=== PATIENT | female | born 1980 | race Caucasian/White ===

== ENCOUNTER 2016-12-03 09:03 | Day surgery (SDC) | payer BC ==
[~2016-12-03 09:03] MED LIST: Lactated Ringers 1,000 ML IV SCH; Lidocaine 1% 4 ML ONE; Lidocaine 1%/Sod Bicarbonate in NS 8.4% 1 ML Syringe IV PRN; Midazolam 1 MG/ML 2 ML SDV ONE; Propofol 200 MG/20 ML SDV ONE; Sodium Chloride 0.9% 10 ML Syringe FLUSH PRN; fentaNYL 250 MCG/5 ML SDV ONE
--- NOTE | 2016-12-03 09:39 | PCM.PREANE ---
Preanesthetic Assessment - Procedure Proposed Procedure: Endometrial Ablation Novasure placement - Anesthesia/Transfusion/Family Hx Anesthesia History: Prior Anesthesia Reaction Type of Anesthesia Reaction: Excessive Nausea/Vomiting Family History of Anesthesia Reaction: No Transfusion History: No Prior Transfusion(s) Intubation History: Unknown - Review of Systems General: Other (nasal congestion ) Pulmonary: No Symptoms Cardiovascular: No Symptoms Gastrointestinal: No symptoms Neurological: No Symptoms Other: Reports: Thyroid Problems (hypothyroidism on medications ) - Physical Assessment NPO Status Date: 12/02/16 NPO Status Time: 23:00 O2 Sat by Pulse Oximetry: 100 Respiratory Rate: 16 Vital Signs: Last Vital Signs Temp 36.4 C 12/03/16 09:10 Pulse 63 12/03/16 09:10 Resp 16 12/03/16 09:10 BP 121/77 12/03/16 09:10 Pulse Ox 100 12/03/16 09:10 Height: 1.73 m Weight: 89.811 kg ASA Class: 2 Mental Status: Alert & Oriented x3 Airway Class: Mallampati = 2 Dentition: Reports: Normal Dentition (retainters upper and lower ) Thyro-Mental Finger Breadths: 3 Mouth Opening Finger Breadths: 5 ROM/Head Extension: Full Lungs: Clear to auscultation, Normal respiratory effort Cardiovascular: Regular Rate, Regular Rhythm - Allergies Allergies/Adverse Reactions: Allergies Allergy/AdvReac Type Severity Reaction Status Date / Time No Known Allergies Allergy Verified 12/02/16 14:45 - Blood Blood Available: Yes Product(s) Available: PRBC - Anesthesia Plan Pre-Op Medication Ordered: None - Acknowledgements Anesthesia Type Planned: General Anesthesia Pt an Appropriate Candidate for the Planned Anesthesia: Yes Alternatives and Risks of Anesthesia Discussed w Pt/Guardian: Yes Pt/Guardian Understands and Agrees with Anesthesia Plan: Yes PreAnesthesia Questionnaire HEENT History: Reports: Allergic Rhinitis Cardiovascular History: Reports: None Respiratory History: Reports: None Gastrointestinal History: Reports: Irritable Bowel Syndrome Genitourinary History: Reports: None RN FLIGHT History: Reports: , Spontaneous Other OB/BYN History: dysmenorrhea, menorrhagia, skin tag of vuvla Musculoskeletal History: Reports: Other (See Below) Other Musculoskeletal History: R foot pain Neurological History: Reports: None Psychiatric History: Reports: None Endocrine/Metabolic History: Reports: Hypothyroidism, Vitamin D Deficiency, Other (See Below) Other Endocrine/Metabolic History: on thyroid supplement Hematologic History: Reports: None Immunologic History: Reports: None Oncologic (Cancer) History: Reports: None Dermatologic History: Reports: Melanoma, Urticaria, Other (See Below) Other Dermatologic History: acne - Past Surgical History Head Surgeries/Procedures: Reports: None HEENT Surgical History: Reports: LASIK, Other (See Below) Other HEENT Surgeries/Procedures: strabismus surgery Female Surgical History: Reports: D&C Endocrine Surgical History: Reports: None - SUBSTANCE USE Smoking Status *Q: Former Smoker Tobacco Use Within Last Twelve Months: No Second Hand Smoke Exposure: No Days Per Week of Alcohol Use: 0 Recreational Drug Use History: No - HOME MEDS Home Medications: Home Meds Cetirizine [ZyrTEC] 10 mg PO DAILY 12/02/16 [History] Cholecalciferol (Vitamin D3) [Vitamin D3] 1,000 unit PO DAILY 12/02/16 [History] Cimetidine [Tagamet Hb] 200 mg PO DAILY 12/02/16 [History] Fluticasone Propionate [Fluticasone Propionate] 2 spray NASBOTH DAILY PRN [History] L.acidoph,Paracasei, B.lactis [Probiotic] 1 cap PO DAILY 12/02/16 [History] Lactase [Lactaid] 1 - 3 tab PO DAILY PRN 12/02/16 [History] Levothyroxine Sodium [Levothyroxine Sodium] 50 mcg PO DAILY 12/02/16 [History] Magnesium Oxide 250 mg PO DAILY 12/02/16 [History] Methylcellulose [Citrucel] 500 mg PO DAILY 12/02/16 [History] Multivitamin [Multivitamins] 1 tab PO DAILY 12/02/16 [History] hydrOXYzine HCl [Hydroxyzine HCl] 50 mg PO BEDTIME 12/02/16 [History] - CURRENT (IN HOUSE) MEDS Current Meds: Current Medications Lactated Ringer's (Ringers, Lactated) 1,000 mls @ 125 mls/hr IV ASDIRECTED ANDRY Last Admin: 12/03/16 09:25 Dose: 125 mls/hr Lidocaine/Sodium Bicarbonate (Buffered Lidocaine 1% In Ns 8.4%) 0.25 ml IV ONETIME PRN PRN Reason: Prior to IV Start Last Admin: 12/03/16 09:25 Dose: 0.25 ml Sodium Chloride (Saline Flush) 10 ml FLUSH ASDIRECTED PRN PRN Reason: Keep Vein Open Discontinued Medications Fentanyl (Sublimaze) Confirm Administered Dose 250 mcg .ROUTE .STK-MED ONE Stop: 12/03/16 07:48 Lidocaine HCl (Xylocaine-Mpf 1%) Confirm Administered Dose 4 mls @ as directed .ROUTE .STK-MED ONE Stop: 12/03/16 07:50 Midazolam HCl (Versed 1 Mg/Ml) Confirm Administered Dose 2 mg .ROUTE .STK-MED ONE Stop: 12/03/16 07:48 Midazolam HCl (Versed 1 Mg/Ml) Confirm Administered Dose 2 mg .ROUTE .STK-MED ONE Stop: 12/03/16 07:49 Propofol (Diprivan 20 Ml) Confirm Administered Dose 400 mg .ROUTE .STK-MED ONE Stop: 12/03/16 07:47
[2016-12-03] MEDS ORDERED: Ondansetron 4 MG/2 ML SDV IVPUSH PRN ×2 (09:43→11:07)
[2016-12-03] MEDS ORDERED: fentaNYL 100 MCG/2 ML SDV IVPUSH PRN (09:43)
[2016-12-03] MEDS ORDERED: diphenhydrAMINE 50 MG/ML SDV IVPUSH PRN (09:43)
[2016-12-03] MEDS ORDERED: ceFAZolin 1 GM Vial ONE (09:56)
[2016-12-03] MEDS ORDERED: HYDROmorphone 0.5 MG/0.5 ML Syringe IVPUSH PRN (10:30)
[2016-12-03] MEDS ORDERED: Lactated Ringers 1,000 ML ONE (10:56)
[2016-12-03] MEDS ORDERED: Ondansetron 4 MG/2 ML SDV ONE (11:03)
[2016-12-03] MEDS ORDERED: Neostigmine Methylsulfate 1 MG/ML 5 ML Syringe ONE (11:03)
[2016-12-03] MEDS ORDERED: Ketorolac 30 MG/ML SDV ONE (11:03)
[2016-12-03] MEDS ORDERED: Dexamethasone 4 MG/ML SDV ONE (11:03)
--- NOTE | 2016-12-03 11:13 | PCM.OPNOTE ---
- General Post-Op/Procedure Note Date of Surgery/Procedure: 12/03/16 Operative Procedure(s): Hysteroscopy, NovaSure endometrial ablation Findings: Normal appearing uterus. Bimanual exam show no adnexal abnormalities or parametrial induration. Uterus sounded to 8.5 cm with cervix approximately 2.5 cm in length. The width of the uterus is 2.5 cm Pre Op Diagnosis: Menorrhagia, dysmenorrhea Post-Op Diagnosis: Same Anesthesia Technique: General ET tube Primary Surgeon: Peng Dyson Complications: None Condition: Good Free Text/Narrative:: Surgery duration: 14 minutes Procedure: After patient was adequately consented she was taken back to the operating room. She had sequential compression stockings placed for DVT prophylaxis and was given 2 g of Ancef preoperatively for infection prophylaxis. She was then given general endotracheal anesthesia. After adequate anesthesia patient was placed in a dorsal lithotomy position and prepped and draped in usual fashion. The weighted speculum was placed cervix grasped with single-tooth tenaculum. The uterine cavity sounded to 8.5 cm with approximately 2.5 cm being cervical length. It was then serially dilated to accommodate a 5 mm rigid 30 scope. This was placed and using normal saline as a distending medium the endometrial cavity was distended and evaluated. No significant pathology was noted. No samples were taken. The NovaSure endometrial ablation was then performed. The NovaSure device packet was opened and the device was inspected. The device was then placed into the endometrial cavity and the array was opened. With the uterus was approximately 2.5 cm. The depths of the uterus itself was 6.0 cm. Cervical Length again 2.5 cm. The settings were placed on the NovaSure generator. The power setting was 83. Uterine cavity integrity check was then performed and was successful. The endometrial ablation was then undertaken. At the end of this the array was collapsed and the device removed. The hysteroscope was then replaced into the endometrial cavity and the endometrial cavity was noted to be adequately cauterized. At this time the procedure was discontinued. The hysteroscope was removed, the cervix which had been grasped with single-tooth tenaculum was released. Sponge stick was placed in the vagina to remove all blood. The patient was returned to supine position and awakened from general endotracheal anesthesia. She tolerated the procedure well left the operating room in satisfactory condition.
--- NOTE | 2016-12-03 11:20 | PCM.POSTAN ---
POST ANESTHESIA ASSESSMENT - MENTAL STATUS Mental Status: alert - RESPIRATORY Respiratory Status: respiratory rate WNL, airway patent, O2 saturation stable - CARDIOVASCULAR CV Status: pulse rate WNL, blood pressure stable - GASTROINTESTINAL GI Status: no symptoms - PAIN Pain Score: 8 (SPIRAL TUBE WINDER has orders for pain medications ) - POST OP HYDRATION Hydration Status: adequate & stable
[2016-12-03 12:09] VITALS: BP 107/70
== END 2016-12-03 13:07 | disposition home or self-care (01) ==
LOC: JD.SDS 09:03
PROVIDERS: ATTEND Obstetrics & Gynecology
DX: N92.0 Excessive and frequent menstruation with regular cycle (principal); N94.6 Dysmenorrhea, unspecified; E03.9 Hypothyroidism, unspecified; K58.9 Irritable bowel syndrome, unspecified; Z88.8 Allergy status to other drugs, medicaments and biological substances; Z79.899 Other long term (current) drug therapy; Z87.59 Personal history of other complications of pregnancy, childbirth and the puerperium; Z98.890 Other specified postprocedural states; Z82.49 Family history of ischemic heart disease and other diseases of the circulatory system; Z87.891 Personal history of nicotine dependence
CPT/HCPCS: 58563; 81025; J0690; J1100; J1885; J2250; J2405; J2710; J3010; J7120; 00952; J2704

== ENCOUNTER 2017-03-18 09:01 | Day surgery (SDC) | payer BC ==
[~2017-03-18 09:01] MED LIST changes: -Lactated Ringers 1,000 ML IV SCH; -Lidocaine 1% 4 ML ONE; -Lidocaine 1%/Sod Bicarbonate in NS 8.4% 1 ML Syringe IV PRN; +Lidocaine 1%/Sod Bicarbonate in NS 8.4% 1 ML Syringe PRN; -Midazolam 1 MG/ML 2 ML SDV ONE; -Propofol 200 MG/20 ML SDV ONE; -fentaNYL 250 MCG/5 ML SDV ONE
[2017-03-18] MEDS ORDERED: Lidocaine 1% with EPINEPHrine 1:100,000 20 ML MDV ONE (09:07)
[2017-03-18] MEDS ORDERED: Sodium Chloride 0.9% 50 ML SDV ONE (09:07)
[2017-03-18] MEDS: Lactated Ringers 1,000 ML IV SCH ×2 (09:15→15:34)
[2017-03-18] MEDS ORDERED: Propofol 200 MG/20 ML SDV ONE (09:19)
[2017-03-18] MEDS ORDERED: Rocuronium 50 MG/5 ML Vial ONE (09:19)
[2017-03-18] MEDS ORDERED: Ondansetron 4 MG/2 ML SDV ONE (09:19)
[2017-03-18] MEDS ORDERED: Midazolam 1 MG/ML 2 ML SDV ONE (09:20)
[2017-03-18] MEDS ORDERED: fentaNYL 250 MCG/5 ML SDV ONE (09:20)
[2017-03-18] MEDS ORDERED: Lidocaine 1% 4 ML ONE (09:20)
[2017-03-18] MEDS ORDERED: ceFAZolin 1 GM Vial ONE (09:23)
[2017-03-18] MEDS ORDERED: Scopolamine 1.5 MG Transdermal Patch TOP ONE (09:24)
--- NOTE | 2017-03-18 09:28 | PCM.PREANE ---
Preanesthetic Assessment - Anesthesia/Transfusion/Family Hx Anesthesia History: Prior Anesthesia Reaction Family History of Anesthesia Reaction: No Transfusion History: No Prior Transfusion(s) Intubation History: Unknown - Review of Systems General: No Symptoms Pulmonary: No Symptoms Cardiovascular: No Symptoms Gastrointestinal: No Symptoms Neurological: No Symptoms Other: Reports: Thyroid Problems (hypothyroid) - Physical Assessment NPO Status Date: 03/17/17 NPO Status Time: 00:00 Pulse: 79 O2 Sat by Pulse Oximetry: 99 Respiratory Rate: 16 Blood Pressure: 115/86 Temperature: 36.8 C Height: 1.73 m Weight: 89.811 kg ASA Class: 2 Mental Status: Alert & Oriented x3 Airway Class: Mallampati = 1 Dentition: Reports: Partial (top and bottom) Thyro-Mental Finger Breadths: 3 Mouth Opening Finger Breadths: 3 ROM/Head Extension: Full Lungs: Clear to Auscultation, Normal Respiratory Effort Cardiovascular: Regular Rate, Regular Rhythm - Lab Values: Laboratory Last Values WBC 7.96 K/mm3 (3.98-10.04) 03/17/17 08:35 RBC 4.90 M/mm3 (3.98-5.22) 03/17/17 08:35 Hgb 14.2 gm/L (11.2-15.7) 03/17/17 08:35 Hct 42.2 % (34.1-44.9) 03/17/17 08:35 MCV 86.1 fl (79.4-94.8) 03/17/17 08:35 MCH 29.0 pg (25.6-32.2) 03/17/17 08:35 MCHC 33.6 g/dl (32.2-35.5) 03/17/17 08:35 RDW Std Deviation 40.5 fL (36.4-46.3) 03/17/17 08:35 Plt Count 281 K/mm3 (182-369) 03/17/17 08:35 MPV 9.1 fl (9.4-12.3) L 03/17/17 08:35 Neut % (Auto) 67.9 % (34.0-71.1) 03/17/17 08:35 Lymph % (Auto) 21.4 % (19.3-51.7) 03/17/17 08:35 [place] % (Auto) 4.6 % (4.7-12.5) L 03/17/17 08:35 Eos % (Auto) 5.9 (0.7-5.8) H 03/17/17 08:35 Baso % (Auto) 0.1 % (0.1-1.2) 03/17/17 08:35 Neut # (Auto) 5.40 K/mm3 (1.56-6.13) 03/17/17 08:35 Lymph # (Auto) 1.70 K/mm3 (1.18-3.74) 03/17/17 08:35 [place] # (Auto) 0.37 K/mm3 (0.24-0.36) H 03/17/17 08:35 Eos # (Auto) 0.47 K/mm3 (0.04-0.36) H 03/17/17 08:35 Baso # (Auto) 0.01 K/mm3 (0.01-0.08) 03/17/17 08:35 Creatinine 0.8 mg/dL (0.55-1.02) 03/17/17 08:35 Est Cr Clr Drug Dosing 98.07 mL/min 03/17/17 08:35 Estimated GFR (MDRD) > 60 mL/min (>60) 03/17/17 08:35 HCG, Quant < 1.0 mIU/mL 03/17/17 08:35 Urine Color Yellow (Yellow) 03/17/17 08:35 Urine Appearance Clear (Clear) 03/17/17 08:35 Urine pH 7.0 (5.0-8.0) 03/17/17 08:35 Ur Specific [place] 1.010 (1.005-1.030) 03/17/17 08:35 Urine Protein Negative (Negative) 03/17/17 08:35 Urine Glucose (UA) Negative (Negative) 03/17/17 08:35 Urine Ketones Negative (Negative) 03/17/17 08:35 Urine Occult Blood 1+ (Negative) H 03/17/17 08:35 Urine Nitrite Negative (Negative) 03/17/17 08:35 Urine Bilirubin Negative (Negative) 03/17/17 08:35 Urine Urobilinogen 0.2 (0.2-1.0) 03/17/17 08:35 Ur Leukocyte Esterase Negative (Negative) 03/17/17 08:35 Blood Type A POSITIVE 03/17/17 08:35 Gel Antibody Screen Negative 03/17/17 08:35 - Allergies Allergies/Adverse Reactions: Allergies Allergy/AdvReac Type Severity Reaction Status Date / Time spironolactone Allergy Cannot Verified 03/17/17 16:20 Remember - Anesthesia Plan Pre-Op Medication Ordered: None - Acknowledgements Anesthesia Type Planned: General Anesthesia Pt an Appropriate Candidate for the Planned Anesthesia: Yes Alternatives and Risks of Anesthesia Discussed w Pt/Guardian: Yes Pt/Guardian Understands and Agrees with Anesthesia Plan: Yes PreAnesthesia Questionnaire HEENT History: Reports: Allergic Rhinitis Cardiovascular History: Reports: None Respiratory History: Reports: None Gastrointestinal History: Reports: GERD, Irritable Bowel Syndrome Genitourinary History: Reports: None [employer] WORKER History: Reports: , Spontaneous Other OB/BYN History: dysmenorrhea, menorrhagia, skin tag of vuvla Musculoskeletal History: Reports: Other (See Below) Other Musculoskeletal History: R foot pain Neurological History: Reports: None Psychiatric History: Reports: None Endocrine/Metabolic History: Reports: Vitamin D Deficiency, Other (See Below) Other Endocrine/Metabolic History: on thyroid supplement Hematologic History: Reports: None Immunologic History: Reports: None Oncologic (Cancer) History: Reports: None Dermatologic History: Reports: Melanoma, Urticaria, Other (See Below) Other Dermatologic History: acne - Past Surgical History Head Surgeries/Procedures: Reports: None HEENT Surgical History: Reports: LASIK Other HEENT Surgeries/Procedures: strabismus surgery Cardiovascular Surgical History: Reports: None Female Surgical History: Reports: D&C, Endometrial Ablation Endocrine Surgical History: Reports: None Oncologic Surgical History: Reports: None - SUBSTANCE USE Smoking Status *Q: Former Smoker Tobacco Use Within Last Twelve Months: No Second Hand Smoke Exposure: No Days Per Week of Alcohol Use: 0 Number of Drinks Per Day: 0 Total Drinks Per Week: 0 Recreational Drug Use History: No - HOME MEDS Home Medications: Home Meds Cetirizine [ZyrTEC] 10 mg PO DAILY 12/02/16 [History] Cholecalciferol (Vitamin D3) [Vitamin D3] 1,000 unit PO DAILY 12/02/16 [History] Cimetidine [Tagamet Hb] 200 mg PO DAILY 12/02/16 [History] Lactase [Lactaid] 1 - 3 tab PO DAILY PRN 12/02/16 [History] Levothyroxine Sodium 50 mcg PO DAILY 12/02/16 [History] Multivitamin [Multivitamins] 1 tab PO DAILY 12/02/16 [History] - CURRENT (IN HOUSE) MEDS Current Meds: Current Medications Lactated Ringer's (Ringers, Lactated) 1,000 mls @ 125 mls/hr IV ASDIRECTED ANDRY Stop: 03/18/17 23:00 Lidocaine/Sodium Bicarbonate (Buffered Lidocaine 1% In Ns 8.4%) 0.25 ml .XX ONETIME PRN PRN Reason: Prior to IV Start Stop: 03/18/17 18:00 Sodium Chloride (Saline Flush) 10 ml FLUSH ASDIRECTED PRN PRN Reason: Keep Vein Open Stop: 03/18/17 18:00 Discontinued Medications Cefazolin Sodium (Ancef) Confirm Administered Dose 2 gm .ROUTE .STK-MED ONE Stop: 03/18/17 09:24 Fentanyl (Sublimaze) Confirm Administered Dose 250 mcg .ROUTE .STK-MED ONE Stop: 03/18/17 09:21 Lidocaine HCl (Xylocaine-Mpf 1%) Confirm Administered Dose 4 mls @ as directed .ROUTE .STK-MED ONE Stop: 03/18/17 09:21 Lidocaine/Epinephrine (Xylocaine 1% With Epinephrine 1:100,000) Confirm Administered Dose 20 ml .ROUTE .STK-MED ONE Stop: 03/18/17 09:08 Midazolam HCl (Versed 1 Mg/Ml) Confirm Administered Dose 2 mg .ROUTE .STK-MED ONE Stop: 03/18/17 09:21 Ondansetron HCl (Zofran) Confirm Administered Dose 4 mg .ROUTE .STK-MED ONE Stop: 03/18/17 09:20 Propofol (Diprivan 20 Ml) Confirm Administered Dose 200 mg .ROUTE .STK-MED ONE Stop: 03/18/17 09:20 Rocuronium [place] (Zemuron) Confirm Administered Dose 50 mg .ROUTE .STK-MED ONE Stop: 03/18/17 09:20 Sodium Chloride (Normal Saline) Confirm Administered Dose 50 ml .ROUTE .STK-MED ONE Stop: 03/18/17 09:08
[2017-03-18] MEDS ORDERED: Dexamethasone 4 MG/ML SDV ONE (09:39)
[2017-03-18] MEDS ORDERED: diphenhydrAMINE 50 MG/ML SDV ONE (09:39)
[2017-03-18] MEDS ORDERED: Morphine 10 MG/ML Syringe ONE (10:08)
[2017-03-18] MEDS ORDERED: Lactated Ringers 1,000 ML ONE ×2 (10:16→10:53)
[2017-03-18] MEDS ORDERED: Acetaminophen/oxyCODONE 325-5 MG Tab PO PRN (10:47)
[2017-03-18] MEDS ORDERED: Ondansetron 4 MG/2 ML SDV IVPUSH PRN (10:47)
--- NOTE | 2017-03-18 10:56 | PCM.OPNOTE ---
- General Post-Op/Procedure Note Date of Surgery/Procedure: 03/18/17 Operative Procedure(s): Total vaginal hysterectomy with bilateral salpingectomy Findings: Uterus was normal size. It was very soft and boggy. Ovaries bilaterally looked normal and functional. Fallopian tubes unremarkable. Pre Op Diagnosis: Abnormal uterine bleeding, status post endometrial ablation Post-Op Diagnosis: Same Anesthesia Technique: General ET Tube Other Anesthesia Type: Local anesthesia with lidocaine quarter percent with [id number] mL tota Primary Surgeon: Peng Dyson Secondary Surgeon: Shun Galvan Anesthesia Provider: Anand Villaseñor Web Developer Programmer: Daren Sanchez Pathology: Uterus, bilateral tubes in one specimen containing Fluid Replacement, Intraop: 2,000 (Crystalloid) EBL in mLs: 250 Complications: None Condition: Good Free Text/Narrative:: Surgeon duration: 42 minutes Complications: None Procedure: Procedure: The patient was placed in supine position on the operating table. General endotracheal anesthesia was accomplished. After positioning, and adequate prep and drape, the procedure was then performed. Sterile speculum was placed in the vagina and cervix was visualized. Cervix was injected with lidocaine quarter percent with epinephrine 20 cc] used. A full circumference incision was made in the cervical epithelium. The bladder was pushed well back off cervix. Posterior cul-de-sac was then entered sharply without problems. Left uterosacral was crossclamped with a Endo seal vessel closure system. The left uterosacral and then the right uterosacral ligament pedicles were developed using the vessel closure system. The anterior cul-de-sac was then entered without problems and the uterine vasculature, cardinal ligament and broad ligament then developed using the vessel closure system. The uterus was inverted at this time and upper broad ligament fallopian tube pedicles were crossclamped with Janine clamps. Specimen was totally removed. Both these pedicles were then secured with a Janine stitch of #1 Vicryl. Left and right fallopian tube was normal in appearance. Using th vessel closure system each of the tubes was then removed and sent with the specimen. The posterior vaginal cuff was run with an 0 Monocryl suture from approximately 2: 00 to 10 o'clock position for hemostatic reasons. The patient was found to be hemostatically intact at this time, both ovaries appeared normal and were left in place. A pursestring suture was and placed in the peritoneal cavity externalizing pedicles in case of bleeding. Vaginal cuff was closed with running locked suture of 0 Monocryl. Patient was returned to supine position and awakened from general endotracheal anesthesia. She tolerated the procedure and left the operating room in satisfactory condition. Sponge instrument and needle counts were correct at the end the procedure.
[2017-03-18] MEDS ORDERED: fentaNYL 100 MCG/2 ML SDV ONE (11:00)
[2017-03-18] MEDS ORDERED: Ketorolac 30 MG/ML SDV ONE (11:01)
[2017-03-18] MEDS ORDERED: Ketorolac 30 MG/ML SDV IVPUSH PRN (11:04)
[2017-03-18] MEDS ORDERED: diphenhydrAMINE 50 MG/ML SDV IVPUSH PRN (11:04)
--- NOTE | 2017-03-18 11:06 | PCM.POSTAN ---
POST ANESTHESIA ASSESSMENT - MENTAL STATUS Mental Status: Alert, Oriented - VITAL SIGNS Pulse Rate: 97 SaO2: 98 Resp Rate: 10 Blood Pressure: 151/98 Temperature: 36.7 C - RESPIRATORY Respiratory Status: Respiratory Rate WNL, Airway Patent, O2 Saturation Stable, Supplemental Oxygen - CARDIOVASCULAR CV Status: Pulse Rate WNL, Blood Pressure Stable - GASTROINTESTINAL GI Status: No Symptoms - PAIN Pain Score: 1 - POST OP HYDRATION Hydration Status: Adequate & Stable - OBSERVATIONS Free Text/Narrative:: no anesthesia complications noted
[2017-03-18] MEDS: fentaNYL 100 MCG/2 ML SDV IVPUSH PRN ×2 (11:07→11:43)
[2017-03-18] MEDS ORDERED: HYDROmorphone 0.5 MG/0.5 ML Syringe IVPUSH ONE (13:17)
[2017-03-18] MEDS ORDERED: HYDROmorphone 0.5 MG/0.5 ML Syringe IVPUSH PRN (13:25)
[2017-03-18 16:25] VITALS: BP 119/62
== END 2017-03-18 18:01 | disposition home or self-care (01) ==
LOC: JD.SDS 09:01 → JD.OB 16:11 → JD.SDS 18:01
PROVIDERS: ATTEND Obstetrics & Gynecology
DX: N87.9 Dysplasia of cervix uteri, unspecified (principal); K21.9 Gastro-esophageal reflux disease without esophagitis; E03.9 Hypothyroidism, unspecified; E55.9 Vitamin D deficiency, unspecified; J30.2 Other seasonal allergic rhinitis; Z79.899 Other long term (current) drug therapy; Z98.890 Other specified postprocedural states; Z88.8 Allergy status to other drugs, medicaments and biological substances; Z87.891 Personal history of nicotine dependence; Z72.0 Tobacco use
CPT/HCPCS: 36415; 58552; 81003; 82565; 84702; 85025; 86850; 86900; 86901; A9270; J0690; J1100; J1170; J1200; J1885; J2250; J2270; J2405; J3010; J7120; 00944; J2704

== ENCOUNTER 2017-03-19 05:40 | Emergency (ER) | payer BC ==
[2017-03-19 05:59] VITALS: BP 174/111
[2017-03-19] MEDS ORDERED: Metoclopramide 10 MG/2 ML SDV IVPUSH STA (06:18)
[2017-03-19] MEDS ORDERED: HYDROmorphone 0.5 MG/0.5 ML Syringe IVPUSH ONE (06:18)
[2017-03-19] MEDS ORDERED: Sodium Chloride 0.9% 1,000 ML IV ONE (06:19)
--- NOTE | 2017-03-19 06:26 | EDM.PDOC ---
ED HPI GENERAL MEDICAL PROBLEM - General Chief Complaint: Gastrointestinal Problem Stated Complaint: nausea Time Seen by Provider: 03/19/17 05:59 Source of Information: Reports: Patient, Family (), RN Notes Reviewed History Limitations: Reports: No Limitations - History of Present Illness INITIAL COMMENTS - FREE TEXT/NARRATIVE: The patient states that she underwent a transvaginal hysterectomy per Dr. Dyson yesterday, 03/18/2017. She was discharged home around 17:30 with prescriptions for Percocet and Zofran, however, the patient started vomiting shortly after discharge and has not been able to keep the Percocet down. The Zofran appears to be ineffective. Since the patient has not been able to take the Percocet, her lower abdominal pain has been increasing. The patient's PCP is Ibeth Ray. Abdomen Pain Score (Numeric/FACES): 8 - Related Data Allergies Allergy/AdvReac Type Severity Reaction Status Date / Time spironolactone Allergy Cannot Verified 03/19/17 06:40 Remember Home Meds: Home Meds Cetirizine [ZyrTEC] 10 mg PO DAILY 12/02/16 [History] Cholecalciferol (Vitamin D3) [Vitamin D3] 1,000 unit PO DAILY 12/02/16 [History] Cimetidine [Tagamet Hb] 200 mg PO DAILY 12/02/16 [History] Lactase [Lactaid] 1 - 3 tab PO DAILY PRN 12/02/16 [History] Levothyroxine Sodium 50 mcg PO DAILY 12/02/16 [History] Multivitamin [Multivitamins] 1 tab PO DAILY 12/02/16 [History] Acetaminophen/oxyCODONE [Percocet 325-5 MG] 2 tab PO Q4H PRN #30 tablet [Rx] Ibuprofen 600 mg PO Q4H PRN #30 tablet 03/18/17 [Rx] Past Medical History HEENT History: Reports: Allergic Rhinitis Gastrointestinal History: Reports: GERD [employer] HEMMER History: Reports: , Spontaneous Endocrine/Metabolic History: Reports: Hypothyroidism Oncologic (Cancer) History: Reports: Malignant Melanoma - Past Surgical History HEENT Surgical History: Reports: Oral Surgery ([place] teeth extraction) Female Surgical History: Reports: Endometrial Ablation, Hysterectomy Musculoskeletal Surgical History: Reports: Other (See Below) (Right bunionectomy ) Oncologic Surgical History: Reports: Other (See Below) (Melanoma excision off back) Social & Family History - Tobacco Use Smoking Status *Q: Former Smoker Years of Tobacco use: 8 Packs/Tins Daily: 1 Month Tobacco Last Used: Quit 2006 Second Hand Smoke Exposure: No - Caffeine Use Caffeine Use: Reports: Coffee - Alcohol Use Alcohol Use History: Yes Alcohol Use Frequency: Socially - Recreational Drug Use Recreational Drug Use: No - Living Situation & Occupation Living situation: Reports: , with Spouse, with Family (5 kids) Occupation: Unemployed ED ROS GENERAL - Review of Systems Review Of Systems: See Below Constitutional: Reports: No Symptoms HEENT: Reports: No Symptoms Respiratory: Reports: No Symptoms Cardiovascular: Reports: No Symptoms Endocrine: Reports: No Symptoms GI/Abdominal: Reports: No Symptoms : Reports: No Symptoms Musculoskeletal: Reports: No Symptoms Skin: Reports: No Symptoms Neurological: Reports: No Symptoms Psychiatric: Reports: No Symptoms Hematologic/Lymphatic: Reports: No Symptoms Immunologic: Reports: No Symptoms ED EXAM, GENERAL - Physical Exam Exam: See Below Exam Limited By: No Limitations General Appearance: Alert, WD/WN, No Apparent Distress Eye Exam: Bilateral Eye: Normal Inspection Ears: Normal External Exam, Hearing Grossly Normal Nose: Normal Inspection, No Blood Throat/Mouth: Normal Inspection, Normal Lips, Normal Voice, No Airway Compromise Head: Atraumatic, Normocephalic Neck: Normal Inspection, Full Range of Motion Respiratory/Chest: No Respiratory Distress, Lungs Clear, Normal Breath Sounds, No Accessory Muscle Use Cardiovascular: Normal Peripheral Pulses, Regular Rate, Rhythm, No Gallop, No JVD, No Murmur, No Rub Peripheral Pulses: 4+: Radial (L), Radial (R) GI/Abdominal: Normal Bowel Sounds, Soft, No Organomegaly, No Distention, No Abnormal Bruit, No Mass, Tender (suprapubic tenderness) (Female) Exam: Deferred Rectal (Female) Exam: Deferred Back Exam: Normal Inspection, Full Range of Motion, NT Extremities: Normal Inspection, Normal Range of Motion, No Pedal Edema, Normal Capillary Refill Neurological: Alert, Oriented, Normal Cognition, No Motor/Sensory Deficits Psychiatric: Normal Affect Skin Exam: Warm, Dry, Intact, Normal Color, No Rash Course - Vital Signs Last Recorded V/S: Last Vital Signs Temp 36.3 C 03/19/17 05:56 Pulse 72 03/19/17 05:56 Resp 16 03/19/17 05:56 BP 174/111 H 03/19/17 05:56 Pulse Ox 100 03/19/17 05:56 - Orders/Labs/Meds Meds: Medications Discontinued Medications Generic Name Dose Route Start Last Admin Trade Name Alec PRN Reason Stop Dose Admin Hydromorphone HCl 0.5 mg 03/19/17 06:18 03/19/17 06:29 Dilaudid IVPUSH 03/19/17 06:19 0.5 mg ONETIME ONE Administration Sodium Chloride 1,000 mls @ 999 mls/hr 03/19/17 06:19 03/19/17 06:28 Normal Saline IV 03/19/17 07:19 999 mls/hr ONETIME ONE Administration Metoclopramide HCl 10 mg 03/19/17 06:18 03/19/17 06:29 Reglan IVPUSH 03/19/17 06:19 10 mg ONETIME STA Administration - Re-Assessments/Exams Free Text/Narrative Re-Assessment/Exam: 03/19/17 07:32 The patient states that the Reglan worked well to control her nausea, and the Dilaudid has improved her pain. She feels well enough to go home. Departure - Departure Time of Disposition: 07:32 Disposition: Home, Self-Care 01 Condition: Good Clinical Impression: Postoperative nausea and vomiting - Discharge Information Referrals: Peng Dyson MD [Primary Care Provider] - Forms: ED Department Discharge Additional Instructions: You were seen in the emergency room for nausea and vomiting following a hysterectomy. Your symptoms improved after receiving IV pain medicine and IV antinausea medicine, along with IV fluid. Take the previously prescribed Zofran as needed for nausea/vomiting. Take [id number] ibuprofen as needed for discomfort. Take the previously prescribed Percocet as needed for pain not controlled by ibuprofen. Follow-up with Dr. Dyson as previously arranged. If any other problems, please do not hesitate to return to the ER.
== END 2017-03-19 08:05 | disposition home or self-care (01) ==
LOC: JD.ED 05:40
DX: N99.89 Other postprocedural complications and disorders of genitourinary system (principal); R11.2 Nausea with vomiting, unspecified; K21.9 Gastro-esophageal reflux disease without esophagitis; E03.9 Hypothyroidism, unspecified; Z85.820 Personal history of malignant melanoma of skin; Z90.710 Acquired absence of both cervix and uterus; Z98.890 Other specified postprocedural states; Z79.899 Other long term (current) drug therapy; Z88.8 Allergy status to other drugs, medicaments and biological substances; Z87.891 Personal history of nicotine dependence
CPT/HCPCS: 96361; 96374; 96375; 99283; J1170; J2765; J7040

== ENCOUNTER 2019-08-04 00:36 | Emergency (ER) | payer BC ==
[2019-08-04 00:49] VITALS: BP 136/97; PULSE 76
[2019-08-04] MEDS ORDERED: Alum Hydrox/Mag Hydrox/Simeth 30 ML, Lidocaine 2% 15 ML PO STA ×2 (01:15)
[2019-08-04] MEDS ORDERED: Famotidine 20 MG Tab PO STA (01:15)
--- NOTE | 2019-08-04 01:23 | EDM.PDOC ---
ED HPI GENERAL MEDICAL PROBLEM - General Chief Complaint: Chest Pain Stated Complaint: CHEST PAIN Time Seen by Provider: 08/04/19 00:46 Source of Information: Reports: Patient, Family () History Limitations: Reports: No Limitations - History of Present Illness INITIAL COMMENTS - FREE TEXT/NARRATIVE: Mrs. Monroy is a very pleasant 39-year-old woman with a past medical history significant for GERD, for which she takes Prilosec and Gaviscon on an as-needed basis. She is to take Tagamet on an as-needed basis, but has not done so for the past year. The patient states that she was woken up around 22:45 with left upper extremity tingling, chest discomfort, rapid palpitations, and dyspnea. She describes her chest discomfort as a heaviness. She also reports that she had the feeling and taste of acid in the back of her throat. She had some nausea and felt lightheaded. No diaphoresis or sense of impending doom, however, she did feel anxious.. A heart attack, she took some aspirin. When EMS arrived, they checked a blood glucose, as the patient had reported that she had donated blood yesterday, 08/03/2019. They found her blood glucose to be 58. It is unclear if anything was given. Here in the ED, the patient is adamant hemodynamically stable, saturating 100% on room air. An Accu-Chek is 86. She reports that she still has a burning sensation to the back of her throat, and some throat discomfort, however, her chest discomfort and left upper extremity tingling have resolved. The patient reports that she has experienced the acid taste in the back of her throat numerous times in the past, more frequently recently, about 2 or 3 times a week. The patient states that she has been constipated recently. She denies recent illness, such as fever, chills, cough, vomiting, diarrhea, abdominal pain, urinary symptoms, recent weight gain or weight loss, recent bloody bowel movements or black bowel movements, joint aches, headaches, or rashes. The patient's PCP is a SUKHWINDER Smith. She received an influenza vaccine this season. Chest Pain Score (Numeric/FACES): 4 - Related Data Allergies Allergy/AdvReac Type Severity Reaction Status Date / Time spironolactone Allergy Cannot Verified 03/19/17 06:40 Remember Home Meds: Home Meds Cetirizine [ZyrTEC] 10 mg PO DAILY 12/02/16 [History] Cholecalciferol (Vitamin D3) [Vitamin D3] 1,000 unit PO DAILY 12/02/16 [History] Cimetidine [Tagamet Hb] 200 mg PO DAILY 12/02/16 [History] Lactase [Lactaid] 1 - 3 tab PO DAILY PRN 12/02/16 [History] Levothyroxine Sodium 50 mcg PO DAILY 12/02/16 [History] Multivitamin [Multivitamins] 1 tab PO DAILY 12/02/16 [History] Acetaminophen/oxyCODONE [Percocet 325-5 MG] 2 tab PO Q4H PRN #30 tablet [Rx] Ibuprofen 600 mg PO Q4H PRN #30 tablet 03/18/17 [Rx] Past Medical History HEENT History: Reports: Allergic Rhinitis Gastrointestinal History: Reports: GERD (treated sporadically) Genitourinary History: Reports: Urinary Incontinence (stress incontinence) 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: , Spontaneous Endocrine/Metabolic History: Reports: Hypothyroidism Oncologic (Cancer) History: Reports: Malignant Melanoma (s/p excision) - Past Surgical History HEENT Surgical History: Reports: Oral Surgery (wisdom teeth extraction) GI Surgical History: Reports: Cholecystectomy (2018), EGD (x 1) Female Surgical History: Reports: D&C (x 1), Endometrial Ablation, Hysterectomy (partial) Musculoskeletal Surgical History: Reports: Other (See Below) (right bunionectomy ) Oncologic Surgical History: Reports: Other (See Below) (melanoma excised off back Feb 2016) Social & Family History - Family History Family Medical History: Noncontributory - Tobacco Use Smoking Status *Q: Former Smoker Years of Tobacco use: 8 Packs/Tins Daily: 1 Month/Year Tobacco Last Used: Quiit 01/03/2007 - Caffeine Use Caffeine Use: Reports: Coffee - Alcohol Use Alcohol Use History: Yes Alcohol Use Frequency: Socially - Recreational Drug Use Recreational Drug Use: No - Living Situation & Occupation Living situation: Reports: , with Spouse, with Family (5 kids) Occupation: Unemployed ED ROS GENERAL - Review of Systems Review Of Systems: Comprehensive ROS is negative, except as noted in HPI. ED EXAM, GI/ABD - Physical Exam Exam: See Below Exam Limited By: No Limitations General Appearance: Alert, WD/WN, No Apparent Distress Eyes: Bilateral: Normal Appearance, EOMI Ears: Normal External Exam, Hearing Grossly Normal Nose: Normal Inspection Throat/Mouth: Normal Inspection, Normal Lips, Normal Voice, No Airway Compromise Head: Atraumatic, Normocephalic Neck: Normal Inspection, Full Range of Motion Respiratory/Chest: No Respiratory Distress, Lungs Clear, Normal Breath Sounds, No Accessory Muscle Use Cardiovascular: Normal Peripheral Pulses, Regular Rate, Rhythm, No Edema, No Gallop, No JVD, No Murmur, No Rub GI/Abdominal Exam: Normal Bowel Sounds, Soft, Non-Tender, No Organomegaly, No Distention, No Abnormal Bruit, No Mass (Female) Exam: Deferred Rectal (Female) Exam: Deferred Back Exam: Normal Inspection, Full Range of Motion, NT Extremities: Normal Inspection, Normal Range of Motion, No Pedal Edema, Normal Capillary Refill Neurological: Alert, Oriented, Normal Cognition, No Motor/Sensory Deficits Psychiatric: Normal Affect Skin Exam: Warm, Dry, Intact, Normal Color, No Rash Course - Vital Signs Last Recorded V/S: Last Vital Signs Temp 37.0 C 08/04/19 00:46 Pulse 76 08/04/19 00:46 Resp 13 08/04/19 00:46 BP 136/97 H 08/04/19 00:46 Pulse Ox 100 08/04/19 00:46 - Orders/Labs/Meds Orders: Active Orders 24 hr Category Date Time Status EKG Documentation Completion [RC] STAT Care 08/04/19 00:50 Active Labs: Laboratory Tests 08/04/19 Range/Units 00:46 POC Glucose 86 (70-105) mg/dL Meds: Medications Discontinued Medications Generic Name Dose Route Start Last Admin Trade Name Freq PRN Reason Stop Dose Admin Al Hydroxide/Mg Hydroxide 30 0 ml 08/04/19 01:15 08/04/19 01:23 ml/ Lidocaine HCl 15 ml PO 08/04/19 01:16 45 ml ONETIME STA Administration Famotidine 40 mg 08/04/19 01:15 08/04/19 01:23 Pepcid PO 08/04/19 01:16 40 mg ONETIME STA Administration - Re-Assessments/Exams Free Text/Narrative Re-Assessment/Exam: 08/04/19 01:16 The patient's history and physical examination are entirely consistent with her symptoms being due to GERD. I offered to perform a cardiac evaluation, however, the patient declined. For today's purposes, the patient will receive a GI cocktail and oral famotidine. Going forward, I am recommending that she start taking [id number] cimetidine twice a day. If that controls her reflux symptoms, she can try decreasing it to once a day. If her symptoms stay controlled, she should remain on that dosage. If her symptoms return, she should return to one tablet twice a day. If, however, twice daily cimetidine does not adequately control her reflux symptoms, she should return to taking Prilosec on a daily basis. In that case, she should continue to take cimetidine for 3 days before discontinuing it. Departure - Departure Time of Disposition: :22 Disposition: Home, Self-Care 01 Condition: Good Clinical Impression: GERD (gastroesophageal reflux disease) - Discharge Information *PRESCRIPTION DRUG MONITORING PROGRAM REVIEWED*: Not Applicable *COPY OF PRESCRIPTION DRUG MONITORING REPORT IN PATIENT LOUISA: Not Applicable Instructions: Gastroesophageal Reflux Disease, Adult, [id number] Referrals: Ibeth Ray PA-C [Primary Care Provider] - Forms: ED Department Discharge Additional Instructions: You were seen in the emergency room after waking with chest discomfort, the taste of acid in the back of her throat, shortness of breath, and left arm tingling. Workup in the ER included an ECG and an Accu-Chek, both of which were normal. Based on your history, physical exam, and ER tests, your symptoms were most likely caused by GERD (acid reflux). Further evaluation, including blood work and a chest x-ray was offered, but declined. We recommend that you begin taking zebw-[id number] cimetidine (Tagamet) 1 tablet twice a day, every day. If that is successful in controlling your acid reflux symptoms, you may consider decreasing the cimetidine to one tablet once a day. If your symptoms return, go back to one tablet twice a day. If taking cimetidine twice a day fails to control your acid reflux symptoms, we recommend that you resume taking Prilosec on a daily basis. Overlap the cimetidine and Prilosec for 3 days, after which you can discontinue the cimetidine. If your symptoms require you to return to taking Prilosec, we recommend that you talk to your PCP about getting an EGD (scope of the esophagus and stomach) to make sure that you have not suffered any esophageal damage. If any other problems, please do not hesitate to return to the ER. Sepsis Event Note - Evaluation Sepsis Screening Result: No Definite Risk - Focused Exam Vital Signs: Vital Signs Temp Pulse Resp BP Pulse Ox 08/04/19 00:46 37.0 C 76 13 136/97 H 100 Date Exam was Performed: 08/04/19 Time Exam was Performed: 01:38 - My Orders Last 24 Hours: My Active Orders 08/04/19 00:50 EKG Documentation Completion [RC] STAT - Assessment/Plan Last 24 Hours: My Active Orders 08/04/19 00:50 EKG Documentation Completion [RC] STAT
== END 2019-08-04 01:50 | disposition home or self-care (01) ==
LOC: JD.ED 00:36
DX: K21.9 Gastro-esophageal reflux disease without esophagitis (principal); J30.9 Allergic rhinitis, unspecified; E03.9 Hypothyroidism, unspecified; Z88.8 Allergy status to other drugs, medicaments and biological substances; Z79.899 Other long term (current) drug therapy; Z79.890 Hormone replacement therapy; Z87.891 Personal history of nicotine dependence
CPT/HCPCS: 82962; 93005; 99285; A9270; 93010; 99283

== ENCOUNTER 2021-01-23 07:15 | Day surgery (SDC) | payer BC ==
[~2021-01-23 07:15] MED LIST changes: +Lactated Ringers 1,000 ML IV SCH; +Lidocaine 1% 4 ML ONE; +Lidocaine 1%/Sod Bicarbonate in NS 8.4% 1 ML Syringe IDERM PRN; -Lidocaine 1%/Sod Bicarbonate in NS 8.4% 1 ML Syringe PRN; +Midazolam 1 MG/ML 2 ML SDV ONE; +Propofol 200 MG/20 ML SDV ONE; +fentaNYL 100 MCG/2 ML SDV ONE
--- NOTE | 2021-01-23 07:52 | PCM.PREANE ---
Preanesthetic Assessment - Procedure Proposed Procedure: Diagnostic EGD - Anesthesia/Transfusion/Family Hx Anesthesia History: Prior Anesthesia Reaction Type of Anesthesia Reaction: Excessive Nausea/Vomiting Family History of Anesthesia Reaction: No Transfusion History: No Prior Transfusion(s) Intubation History: Unknown - Review of Systems General: No Symptoms Pulmonary: No Symptoms (Quit smoking 13 yrs ago./ETOH: frequently) Cardiovascular: No Symptoms Gastrointestinal: No Symptoms (GERD) Neurological: No Symptoms Other: Reports: Thyroid Problems (Hypothyroid) - Physical Assessment NPO Status Date: 01/22/21 NPO Status Time: 22:00 Vital Signs: HR: 75 B/P: 117/79 Resp: 12 Sat: 96% Temp: 98.5 Height: 1.73 m Weight: 100 kg ASA Class: 3 Mental Status: Alert & Oriented x3 Airway Class: Mallampati = 2 Dentition: Reports: Normal Dentition, Broken Tooth/Teeth (3), Caries Thyro-Mental Finger Breadths: 3 Mouth Opening Finger Breadths: 3 ROM/Head Extension: Full Lungs: Clear to Auscultation, Normal Respiratory Effort Cardiovascular: Regular Rate, Regular Rhythm, No Murmurs - Lab Values: Prior labs from the past reviewed and noted. - Imaging/EKG Impressions: EKG: SR rate= 72, Right Alden Deviation - Allergies Allergies/Adverse Reactions: Allergies Allergy/AdvReac Type Severity Reaction Status Date / Time egg Allergy Abdominal Verified 01/22/21 16:39 Pain hydromorphone [From Dilaudid] Allergy Nausea Verified 01/22/21 16:39 sesame seed Allergy Cannot Verified 01/22/21 16:39 Remember tomato Allergy Cannot Verified 01/22/21 16:39 Remember - Anesthesia Plan Pre-Op Medication Ordered: None - Acknowledgements Anesthesia Type Planned: MAC Pt an Appropriate Candidate for the Planned Anesthesia: Yes Alternatives and Risks of Anesthesia Discussed w Pt/Guardian: Yes Pt/Guardian Understands and Agrees with Anesthesia Plan: Yes PreAnesthesia Questionnaire HEENT History: Reports: Allergic Rhinitis Cardiovascular History: Reports: Other (See Below) Other Cardiovascular History: bradycardia Respiratory History: Reports: None Gastrointestinal History: Reports: GERD Genitourinary History: Reports: Urinary Incontinence DIRECTOR SAFETY History: Reports: , Spontaneous Other OB/BYN History: dysmenorrhea, menorrhagia, skin tag of vuvla Musculoskeletal History: Reports: Other (See Below) Other Musculoskeletal History: R foot pain Neurological History: Reports: Other (See Below) Other Neuro History: dizziness Psychiatric History: Reports: None Endocrine/Metabolic History: Reports: Hypothyroidism, Vitamin D Deficiency Other Endocrine/Metabolic History: on thyroid supplement Hematologic History: Reports: None Immunologic History: Reports: None Oncologic (Cancer) History: Reports: Malignant Melanoma Dermatologic History: Reports: Melanoma, Urticaria, Other (See Below) Other Dermatologic History: acne, unwanted hair, hives - Past Surgical History Head Surgeries/Procedures: Reports: None HEENT Surgical History: Reports: Laser Surgery, Oral Surgery Other HEENT Surgeries/Procedures: strabismus surgery Cardiovascular Surgical History: Reports: None Respiratory Surgical History: Reports: None GI Surgical History: Reports: Cholecystectomy, EGD Female Surgical History: Reports: D&C, Endometrial Ablation, Hysterectomy Male Surgical History: Reports: None Endocrine Surgical History: Reports: None Musculoskeletal Surgical History: Reports: Other (See Below) Other Musculoskeletal Surgeries/Procedures:: right foot surgery Oncologic Surgical History: Reports: None, Other (See Below) - SUBSTANCE USE Tobacco Use Status *Q: Former Tobacco User Recreational Drug Use History: No - HOME MEDS Home Medications: Home Meds Multivitamin [Multivitamins] 1 tab PO DAILY 12/02/16 [History] Cholecalciferol (Vitamin D3) [Vitamin D3] 5,000 unit PO DAILY 01/22/21 [History] Levothyroxine [Synthroid] 100 mcg PO DAILY 01/22/21 [History] Spironolactone [Aldactone] 50 mg PO BID 01/22/21 [History] valACYclovir HCl [Valtrex] 500 mg PO ASDIRECTED PRN 01/22/21 [History] - CURRENT (IN HOUSE) MEDS Current Meds: Current Medications Lactated Ringer's (Ringers, Lactated) 1,000 mls @ 125 mls/hr IV ASDIRECTED ANDRY Stop: 01/23/21 23:00 Lidocaine/Sodium Bicarbonate (Lidocaine 1%/Sod Bicarbonate In Ns 8.4% 1 Ml Syringe) 0.25 ml IDERM ONETIME PRN PRN Reason: Prior to IV Start Stop: 01/23/21 18:00 Sodium Chloride (Sodium Chloride 0.9% 10 Ml Syringe) 10 ml FLUSH ASDIRECTED PRN PRN Reason: Keep Vein Open Stop: 01/23/21 18:00 Discontinued Medications Fentanyl (Fentanyl 100 Mcg/2 Ml Sdv) Confirm Administered Dose 100 mcg .ROUTE .STK-MED ONE Stop: 01/23/21 07:05 Lidocaine HCl (Xylocaine-Mpf 1%) Confirm Administered Dose 4 mls @ as directed .ROUTE .STK-MED ONE Stop: 01/23/21 07:05 Midazolam HCl (Midazolam 1 Mg/Ml 2 Ml Sdv) Confirm Administered Dose 2 mg .ROUTE .STK-MED ONE Stop: 01/23/21 07:05 Propofol (Propofol 200 Mg/20 Ml Sdv) Confirm Administered Dose 200 mg .ROUTE .STK-MED ONE Stop: 01/23/21 07:05
[2021-01-23] MEDS ORDERED: Ondansetron 4 MG/2 ML SDV IVPUSH PRN (08:37)
[2021-01-23] MEDS ORDERED: diphenhydrAMINE 50 MG/ML SDV IVPUSH PRN (08:37)
--- NOTE | 2021-01-23 08:53 | PCM48HPAN ---
Post Anesthesia Note - EVALUATION WITHIN 48HRS OF ANESTHETIC Vital Signs in Normal Range: Yes Patient Participated in Evaluation: Yes Respiratory Function Stable: Yes Airway Patent: Yes Cardiovascular Function Stable: Yes Hydration Status Stable: Yes Pain Control Satisfactory: Yes Nausea and Vomiting Control Satisfactory: Yes Mental Status Recovered: Yes Vital Signs: Last Vital Signs Temp 98.3 01/23/21 0842 Pulse 75 01/23/21 0842 Resp 12 01/23/21 0842 BP 115/69 01/23/21 0842 Pulse Ox 96 01/23/21 0842
--- NOTE | 2021-01-23 09:01 | PCM.PRNOTE ---
- Free Text/Narrative Note: Date: 01/23/2021 Procedure: diagnostic esophagogastroduodenoscopy Indication: chronic persistent reflux type symptoms, findings of esophagitis on EGD 7 years ago Endoscopist: Erik Abdi MD Findings: apparent bile reflux with linear streaking erythema at the antrum. No hiatal hernia, no gross evidence of metaplasia or esophagitis. Detailed Report: The patient was taken to the endoscopy suite and placed in left lateral decubitus position. Timeout was performed and monitored anesthesia care was in itiated. A bite-block was placed. The scope was inserted into the mouth and advanced to the duodenum. The duodenum appeared normal with smith yellow bile throughout. Sample biopsies of the proximal duodenum were obtained with cold forceps. The scope was withdrawn into the stomach. There was linear streaking erythema at the antrum leading up to the pylorus. There was some evidence of bile reflux within the stomach. Biopsies of the antrum were obtained with cold forceps. There was no evidence of ulceration or other gastric pathology proximally. On retroflexion, no hiatal hernia was appreciated. The scope was withdrawn into the distal esophagus. The Z-line appeared normal and there was no evidence of inflammatory change in the distal esophagus. Biopsies of the distal esophageal mucosa were obtained with cold forceps. Air was suctioned from the stomach prior to withdrawal of the scope. The remainder of the esophagus appeared normal. The patient tolerated the procedure well.
[2021-01-23 11:15] VITALS: BP 124/76; PULSE 70
== END 2021-01-23 09:45 | disposition home or self-care (01) ==
LOC: JD.SDS 07:15
PROVIDERS: ATTEND Surgery
DX: K29.70 Gastritis, unspecified, without bleeding (principal); K31.89 Other diseases of stomach and duodenum; K63.89 Other specified diseases of intestine; K21.9 Gastro-esophageal reflux disease without esophagitis; E03.9 Hypothyroidism, unspecified; Z79.890 Hormone replacement therapy; Z87.891 Personal history of nicotine dependence
CPT/HCPCS: 43239; J2250; J2405; J2704; J3010; J7120; 00731